=== PATIENT | female | born 1955 | race Two or more races ===

== ENCOUNTER 2024-02-25 10:50 | Outpatient (REF) | payer MEDICAID, SELFPAY ==
[2024-02-25 12:54] LABS: Vitamin B12 342 pg/mL (200-900)
== END 2024-02-25 10:51 | disposition home or self-care (01) ==
LOC: HO.LAB 10:50
PROVIDERS: PCP Student in an Organized Health Care Education/Training Program; Visit Provider Psychiatry & Neurology Neurology
DX: G31.84 Mild cognitive impairment of uncertain or unknown etiology (principal)
CPT/HCPCS: 36415; 82607